=== PATIENT | male | born 1945 | race Hispanic/Latino ===

== ENCOUNTER 2018-07-10 05:50 | Day surgery (SDC) | payer MEDICARE ==
[2018-07-10 06:58] LABS: Basophils % (Auto) 0.6 % (0.0-1.8); Eosinophils # (Auto) 0.1 K/mm3 (0.0-0.4); Eosinophils % (Auto) 2.3 % (0.0-4.3); Hematocrit 36.6 % (35.5-45.6); Hemoglobin 12.7 gm/dl (11.8-15.2); Mean Corpuscular HGB Conc 35 % (32-34); Mean Corpuscular Volume 94 fl (84-94); Monocytes # (Auto) 0.7 K/mm3 (0.0-0.8); Monocytes % (Auto) 12.5 % (0.0-7.3); Platelet Count 190 K/mm3 (140-440); Red Blood Count 3.89 M/mm3 (3.65-5.03); Red Cell Distribution Width 13.1 % (13.2-15.2)
[2018-07-10] MEDS ORDERED: NACL 0.9% 500 ML 500 ML IV SCH (07:00)
[2018-07-10 07:08] LABS: INR 1.01 (0.87-1.13)
[2018-07-10 07:09] LABS: Partial Thromboplastin Time 23.5 Sec. (24.2-36.6)
[2018-07-10 07:09] LABS: BUN/Creatinine Ratio 19; Blood Urea Nitrogen 17 mg/dL (9-20); Calcium 8.8 mg/dL (8.4-10.2); Hemolysis Index 14
[2018-07-10] MEDS ORDERED: CALAN ONE (08:14)
[2018-07-10] MEDS ORDERED: HEPARIN 10,000 UNITS/10 ML ONE (08:14)
[2018-07-10] MEDS ORDERED: XYLOCAINE 2% INFILTRATI ONE (08:14)
[2018-07-10] MEDS ORDERED: HEPARIN/NS 5000 UNIT/500ML(CATH LAB) 1,000 ML IR ONE (08:14)
[2018-07-10] MEDS: SUBLIMAZE ONE ×2 (08:58→09:11)
[2018-07-10] MEDS: VERSED ONE ×2 (08:58→09:11)
[2018-07-10 13:17] VITALS: BP 143/56
--- NOTE | 2018-07-10 13:17 | Short Stay Summary ---
Short Stay Documentation Date of service: 07/10/18 - History H&P: obtained from office - Allergies and Medications Current Medications: Allergies codeine Allergy (Verified 07/10/18 06:33) Unknown colesevelam [From WelChol] Allergy (Verified 07/10/18 06:48) Unknown leg cramping nalbuphine [From Nubain] Allergy (Verified 07/10/18 06:48) Unknown pt stated feeling like a panic attack Sulfa (Sulfonamide Antibiotics) Allergy (Verified 07/10/18 06:48) Itching rosuvastatin [From Crestor] Adverse Reaction (Verified 07/10/18 06:48) Unknown severe cramping in legs Home Medications Medication Instructions Recorded Confirmed Last Taken Type Alirocumab [Praluent Pen] 1 ml SQ Q2W 07/10/18 07/10/18 06/29/18 History 1ml Aspirin [Aspirin BABY CHEW TAB] 1 tab PO DAILY 07/10/18 07/10/18 07/08/18 History 1 tab Baclofen 20 mg PO HS 07/10/18 07/10/18 07/09/18 History 20mg Carvedilol 1 tab PO BID 07/10/18 07/10/18 07/09/18 History 1 tab Citalopram [celeXA] 10 mg PO DAILY 07/10/18 07/10/18 07/09/18 History 10mg Clopidogrel Bisulfate [Clopidogrel] 75 mg PO DAILY 07/10/18 07/10/18 07/09/18 History 75mg Famotidine [Acid Controller] 20 mg PO DAILY 07/10/18 07/10/18 07/09/18 History 20mg Gabapentin [Neurontin] 100 mg PO BID 07/10/18 07/10/18 07/09/18 History 200mg Glimepiride [Amaryl] 4 mg PO DAILY 07/10/18 07/10/18 07/09/18 History 4mg Lisinopril [Zestril] 10 mg PO DAILY 07/10/18 07/10/18 07/09/18 History 10mg Magnesium Gluconate 250 mg PO DAILY 07/10/18 07/10/18 07/09/18 History 250mg Mv-Min/Folic/Vit K/Lycop/Coq10 1 cap PO DAILY 07/10/18 07/10/18 07/09/18 History [Daily Multivitamin Capsule] 1 cap Nitroglycerin [Nitro-Dur] 0.3 mg TRANSDERMA DAILY 07/10/18 07/10/18 07/09/18 History 1 patch Nitroglycerin [Nitrostat] 0.4 mg SL PRN PRN 07/10/18 07/10/18 06/24/18 History 0.4mg Potassium Chloride [Klor-Con M20] 20 meq PO DAILY 07/10/18 07/10/18 07/09/18 History 20meq Ranolazine [Ranexa] 1,000 mg PO BID 07/10/18 07/10/18 07/09/18 History 1000mg Terazosin [Hytrin] 5 mg PO DAILY 07/10/18 07/10/18 07/09/18 History 5mg metFORMIN [Glucophage] 500 mg PO BID 07/10/18 07/10/18 07/09/18 History 500mg Active Medications Sodium Chloride (Nacl 0.9% 500 Ml) 500 mls @ 50 mls/hr IV DIRECT BENJIE Stop: 07/10/18 16:59 Last Admin: 07/10/18 07:23 Dose: 50 mls/hr Documented by: - Brief post op/procedure progress note Date of procedure: 07/10/18 Pre-op diagnosis: PVD Post-op diagnosis: same Procedure: peripheral angiogram - see dictated cath report Anesthesia: local Estimated blood loss: none Condition: stable - Disposition Condition at discharge: Good Disposition: [id number] TO HOME OR SELFCARE - Discharge Diagnoses (1) PVD (peripheral vascular disease) Status: Chronic Short Stay Discharge Plan Activity: advance as tolerated Diet: low fat, low cholesterol, low salt, diabetic Wound: open to air, keep clean and dry, per your surgeon's advice Follow up with: AYANNA ALTMAN MD [Staff Physician] - 7 Days DEIDRA HARRIS DO [Primary Care Provider] - 7 Days Forms: Post Arteriogram Instruct
--- NOTE | 2018-07-11 13:54 | Cardiac Catherization Report ---
PERIPHERAL ANGIOGRAM REPORT INDICATION FOR PROCEDURE: The patient is a 73-year-old white gentleman well known to us for many years with a history of underlying coronary artery disease and coronary bypass surgery, significant symptoms of leg pains and weakness. He has noninvasive evaluation performed, which showed evidence of arterial disease. Because of significant symptoms, he was scheduled for diagnostic peripheral angiogram. The patient is aware of the procedure, potential complications and alternatives of therapy available. DESCRIPTION OF PROCEDURE: The patient was brought to the catheterization laboratory in fasting condition. The patient was evaluated for moderate sedation and he was felt to be appropriate candidate for moderate sedation and was given IV Versed and fentanyl for sedation. Subsequently, local anesthesia was given in the right wrist area and right radial artery puncture was made using 21-gauge arterial puncture needle. Subsequently, 5-Gabonese slender sheath was introduced. Initially, a 5-Gabonese pigtail catheter was advanced into the abdominal aorta under fluoroscopy and with the help of J guidewire and also Glidewire. Abdominal aortogram was obtained. Using distal subtraction angiography, 20 mL was injected at 10 mL/sec. After obtaining the abdominal aortogram, pigtail catheter was advanced under fluoroscopy to L4-L5 area and using distal subtraction angiography, angiograms of pelvic vessels and bilateral lower extremity angiograms were obtained in a standard fashion. For further clarification of the lesion in the right common iliac artery, right common iliac artery selectively was engaged using a 150 cm vertebral catheter and angiograms of the right lower extremity were obtained selectively. At the end of the procedure, catheter and sheath were removed over the guidewire and the patient tolerated the procedure well. Right radial artery hemostasis was achieved by applying radial band. The patient tolerated the moderate sedation well. He was monitored throughout the procedure using hemodynamic monitoring, EKG, and pulse oximetry. The patient was sedated at 9:13 a.m. and sedation monitoring ended at 9:25 a.m. During this procedure, the patient was stable at the end of the procedure: The patient is communicating well, moving all the extremities and no side effects were noted from moderate sedation. Following angiographic findings were noted. Abdominal aortogram showed normal sized abdominal aorta with bilateral patent renal arteries. Only minimal irregularities noted. Pelvic vessel angiograms showed severe eccentric 80-90% ostial proximal right common iliac lesion. Otherwise, distal common iliac and right external iliac without significant disease. Left common iliac and left external iliac artery showed only mild disease. Angiograms of the right lower extremity showed mild superficial femoral disease, probably 30% in the mid part. Otherwise, no significant disease in the right superficial femoral artery, popliteal artery, and 2-vessel runoff was noted in the right lower extremity, anterior tibial may be patent, but not well visualized. Left lower extremity angiography also showed widely patent left common femoral artery and left superficial vessels without any significant disease; popliteal and infrapopliteal vessels without significant disease. Two-vessel runoff was noted. FINAL IMPRESSION: 1. Unremarkable abdominal aorta without any aneurysmal dilatation or significant atherosclerosis plaque and patent renal arteries noted. 2. Severe eccentric mildly calcific right common iliac ostial lesion noted. Otherwise, rest of the pelvic vessels without significant disease. 3. There is mild 30-40% smooth lesion noted in the mid right SFA. Otherwise, bilateral lower extremity angiography did not show significant atherosclerotic disease. The patient tolerated the procedure well. No untoward complications noted. At this time, only significant lesion is in the right common iliac artery. However, the patient's symptoms are bilateral and he has extreme weakness in the lower extremities along with severe pain, etiology of this is not clear. Recommended neurological evaluation for any underlying neuropathy. Once neurological workup is performed if he is symptomatic, then we consider intervention of the significant lesion noted in the right common iliac area. There is a significant gradient across this lesion almost more than 50 mmHg gradient noted across this lesion. Findings were explained to the patient and family. Procedure was uncomplicated. No untoward complications were noted. JOB# [id number] [id number]/KUMAR
== END 2018-07-10 13:00 | disposition home or self-care (01) ==
LOC: CATHLABREC 05:50
PROVIDERS: ATTEND Internal Medicine
DX: I99.8 Other disorder of circulatory system (principal); E11.51 Type 2 diabetes mellitus with diabetic peripheral angiopathy without gangrene; I10 Essential (primary) hypertension; I25.10 Atherosclerotic heart disease of native coronary artery without angina pectoris; E78.2 Mixed hyperlipidemia; M19.90 Unspecified osteoarthritis, unspecified site; I25.2 Old myocardial infarction; Z79.82 Long term (current) use of aspirin; Z79.899 Other long term (current) drug therapy; Z79.84 Long term (current) use of oral hypoglycemic drugs; Z88.5 Allergy status to narcotic agent; Z88.2 Allergy status to sulfonamides; Z88.8 Allergy status to other drugs, medicaments and biological substances; Z95.810 Presence of automatic (implantable) cardiac defibrillator; Z95.5 Presence of coronary angioplasty implant and graft; Z87.891 Personal history of nicotine dependence; Z85.828 Personal history of other malignant neoplasm of skin; Z98.890 Other specified postprocedural states
CPT/HCPCS: 36245; 36415; 75625; 75716; 80048; 85025; 85610; 85730; 99156; C1769; C1894; J1644; J2250; J3010; J7040; 36200; Q9967